=== PATIENT | female | born 1970 | race Caucasian/White ===

== ENCOUNTER 2017-02-18 09:09 | Emergency (ER) | payer BC ==
--- NOTE | 2017-02-18 09:11 | UC ---
Respiratory Complaint HPI - HPI Summary HPI Summary: 46 YEAR OLD FEMALE PRESENTS WITH COMPLAINS OF COUGH, CHEST CONGESTION AND TROUBLE BREATHING. - History of Current Complaint Stated Complaint: COUGH,CHEST CONGESTION,SINUS Time Seen by Provider: 02/18/17 09:10 - Allergies/Home Medications Allergies/Adverse Reactions: Allergies Allergy/AdvReac Type Severity Reaction Status Date / Time No Known Allergies Allergy Verified 02/18/17 09:16 Review of Systems Constitutional: Negative Skin: Negative Eyes: Negative ENT: Sore Throat, Nasal Discharge, Sinus Congestion, Sinus Pain/Tenderness Respiratory: Shortness Of Breath, Cough Cardiovascular: Negative Gastrointestinal: Negative Genitourinary: Negative Motor: Negative Neurovascular: Negative Musculoskeletal: Negative Neurological: Negative Psychological: Negative All Other Systems Reviewed And Are Negative: Yes Physical Exam Triage Information Reviewed: Yes Eye Exam: Normal ENT: Positive: Nasal congestion, Nasal drainage Dental Exam: Normal Neck exam: Normal Neck: Positive: 1 Respiratory: Positive: Wheezing, Expiration Cardiovascular Exam: Normal Abdominal Exam: Normal Musculoskeletal Exam: Normal Neurological Exam: Normal Psychological Exam: Normal Skin Exam: Normal Respiratory Course/Dx - Differential Dx/Diagnosis Provider Diagnoses: SINUSITIS. PHARYNGITIS. WHEEZING Discharge - Discharge Plan Condition: Stable Disposition: HOME Prescriptions: Albuterol HFA INHALER* [Ventolin HFA Inhaler*] 1 puff INH Q4H PRN #1 mdi PRN Reason: Wheezing Azithromycin TAB* [Zithromax TAB (Z-AGATA) 250 mg #6 tabs] 2 tab PO .TODAY, THEN 1 DAILY #1 agata Methylprednisolone [Medrol Dosepak 4 MG*] 4 mg PO .SEE AGATA INSTRUCTION #21 tab guaiFENesin/CODIEN 100MG-10MG* [Robitussin AC 100Mg-10Mg*] 5 ml PO Q4H PRN #120 udc MDD 20 ML PRN Reason: Cough Patient Education Materials: Sinusitis (ED), Acute Bronchitis (ED), Cold Symptoms (ED) Referrals: NUHA Pepper [Primary Care Provider] -
[2017-02-18 09:21] VITALS: BP 143/84
== END 2017-02-18 09:51 | disposition home or self-care (01) ==
LOC: UCCORT 09:09
DX: J32.9 Chronic sinusitis, unspecified (principal); J02.9 Acute pharyngitis, unspecified; R06.2 Wheezing
CPT/HCPCS: 99202; G0463

== ENCOUNTER 2018-05-13 08:59 | Emergency (ER) | payer BC, OTHER ==
[2018-05-13 09:18] VITALS: BP 151/86
--- NOTE | 2018-05-13 09:43 | UC ---
Lower Extremity/Ankle HPI - HPI Summary HPI Summary: Pt c/o left foot pain that began after jumping out of a ditch quickly due to "bee attack". Pt has previous hx of fracture to left foot. pain began in left mentral "ball of foot" and now thinks that plantar, distal foot is bruised. - History of Current Complaint Chief Complaint: UCLowerExtremity Stated Complaint: LEFT FOOT PAIN Time Seen by Provider: 05/13/18 09:02 Hx Obtained From: Patient Hx Last Menstrual Period: 05/08/18 ?: No Onset/Duration: Gradual Onset, Lasting Days, Still Present Severity Initially: Mild Severity Currently: Moderate Pain Intensity: 5 Aggravating Factor(s): Standing, Ambulation Alleviating Factor(s): Rest, Elevation Able to Bear Weight: Yes - Risk Factors Gout Risk Factors: Age Over 40 DVT Risk Factors: Smoking Septic Arthritis Risk Factor: Negative - Allergies/Home Medications Allergies/Adverse Reactions: Allergies Allergy/AdvReac Type Severity Reaction Status Date / Time No Known Allergies Allergy Verified 05/13/18 09:08 Home Medications: Home Medications Esential Oils 05/13/18 [History] PMH/Surg Hx/FS Hx/Imm Hx Previously Healthy: Yes - Surgical History Surgical History: Yes Surgery Procedure, Year, and Place: Bilateral Carpal Tunnel Release, 2007, [facility]; Left Third Finger Trigger, 2007, [facility]. LEFT FOOT FXS - 1999 - Family History Known Family History: Positive: Cardiac Disease - Social History Occupation: Employed Full-time Lives: With Family Alcohol Use: "six pack or more" most days Substance Use Type: None Smoking Status (MU): Heavy Every Day Tobacco Smoker Type: Cigarettes Amount Used/How Often: ~ 1 PPD Length of Time of Smoking/Using Tobacco: Since Age 16 Have You Smoked in the Last Year: Yes Household Exposure Type: Cigarettes Review of Systems Constitutional: Negative Skin: Bruising Eyes: Negative ENT: Negative Respiratory: Negative Cardiovascular: Negative Gastrointestinal: Negative Genitourinary: Negative Motor: Negative Neurovascular: Negative Musculoskeletal: Arthralgia, Myalgia Neurological: Negative Psychological: Negative Is Patient Immunocompromised?: No All Other Systems Reviewed And Are Negative: Yes Physical Exam Triage Information Reviewed: Yes Appearance: Well-Appearing Vital Signs: Initial Vital Signs Temp 98.7 F 05/13/18 09:09 Pulse 74 05/13/18 09:09 Resp 18 05/13/18 09:09 BP 151/86 05/13/18 09:09 Pulse Ox 99 05/13/18 09:09 Vital Signs Reviewed: Yes Eye Exam: Normal ENT Exam: Normal Dental Exam: Normal Neck exam: Normal Respiratory: Positive: Respiratory distress Musculoskeletal: Positive: Other: - c/o pain at mid plantar aspect of "ball of foot". Neurological Exam: Normal Psychological Exam: Normal Skin Exam: Normal Diagnostics - Radiology No standard instances Radiology Interpretation Completed By: Radiologist - REPORT AND IMPRESSION: #. Normal articular alignment. #. Negative for fracture, findings of stress reaction, or focal osseous lesions. #. Preserved joint spaces. #. Small plantar fascia origin bone spur. Lower Extremity Course/Dx - Differential Dx/Diagnosis Differential Diagnosis/HQI/PQRI: Bursitis, Fracture (Closed), Strain Provider Diagnoses: metatarsalgia left foot Discharge - Sign-Out/Discharge Documenting (check all that apply): Patient Departure All imaging exams completed and their final reports reviewed: Yes - Discharge Plan Condition: Stable Disposition: HOME Patient Education Materials: Metatarsalgia (DC) Referrals: Bear Gramajo MD [Medical Doctor] - If Needed Helen Avelar NP [Primary Care Provider] - If Needed - Billing Disposition and Condition Condition: STABLE Disposition: Home
--- NOTE | 2018-05-13 09:49 | RAD ---
Indication: Pain post unrestrained to the LEFT foot 1.5 weeks ago. Plantar surface pain. Comparison: No relevant prior exams available on the [facility] PACS for comparison. Technique: AP, lateral, and oblique views LEFT foot. REPORT AND IMPRESSION: #. Normal articular alignment. #. Negative for fracture, findings of stress reaction, or focal osseous lesions. #. Preserved joint spaces. #. Small plantar fascia origin bone spur.
== END 2018-05-13 10:01 | disposition home or self-care (01) ==
LOC: UCCORT 08:59
DX: M25.572 Pain in left ankle and joints of left foot (principal)
CPT/HCPCS: 99211; G0463

== ENCOUNTER 2018-08-11 03:37 | Observation (INO) | payer OTHER ==
--- NOTE | 2018-08-11 03:55 | ED ---
Neurological HPI - HPI Summary HPI Summary: This patient is a 47 year old F transferred from [place] accompanied by a woman with a chief complaint of stroke symptoms since last night. The patient had just had intercourse when she lost the ability to talk clearly, speaking in made-up words to her who called EMS. Patient reports memory loss, confusion, difficulty talking, shoulder myalgia, the inability to smell, sensations in her neck. Patient denies vision problems or difficulty ambulating. The patients difficulty speaking resolved after about 30 minutes, according to her . She does not remember her attempting to get her dressed before coming to the hospital. The patient had several glasses of wine tonight. The patient had a WI on June 15 and since then has been eating very well, quit smoking, and decreased EtOH use. She states that her shoulders felt achy when she had her WI, and she has been feeling similarly recently. PMHX WI, HTN, HDL. No PMHx diabetes. SHX former smoker, occasional EtOH use. RX Plavix. Vitals in the room: HR 74 bpm BP 122/69. - History of Current Complaint Chief Complaint: EDNeurologicalDeficit Stated Complaint: GENERAL Time Seen by Provider: 08/11/18 03:41 Hx Obtained From: Patient, EMS Hx Last Menstrual Period: 05/08/18 Onset/Duration: Sudden Onset, Started hours ago Character: Impaired Speech Associated Signs and Symptoms: Positive: Memory Loss, Confusion. Negative: Visual Changes - Allergy/Home Medications Allergies/Adverse Reactions: Allergies Allergy/AdvReac Type Severity Reaction Status Date / Time No Known Allergies Allergy Verified 05/13/18 09:08 PMH/Surg Hx/FS Hx/Imm Hx Endocrine/Hematology History: Denies: Hx Diabetes Cardiovascular History: Reports: Hx Hypertension, Hx Myocardial Infarction History: Denies: Hx Dialysis - Surgical History Surgery Procedure, Year, and Place: Bilateral Carpal Tunnel Release, 2007, [facility]; Left Third Finger Trigger, 2007, [facility]. LEFT FOOT FXS - 1999 - Family History Known Family History: Positive: Cardiac Disease, Other - TIA - Social History Alcohol Use: Occasionally Substance Use Type: Reports: None Hx Tobacco Use: No Smoking Status (MU): Former Smoker - just quit after WI Type: Cigarettes Amount Used/How Often: ~ 1 PPD Length of Time of Smoking/Using Tobacco: Since Age 16 Have You Smoked in the Last Year: Yes Review of Systems Negative: Blurred Vision ENT: Other - inability to smell Positive: Myalgia - shoulder. Negative: Decreased ROM Neurological: Other - memory loss, confusion Positive: Slurred Speech Psychological: Other All Other Systems Reviewed And Are Negative: Yes Physical Exam - Summary Physical Exam Summary: Appearance: Well-appearing, Well-nourished, lying in bed comfortably Skin: Warm, dry, no obvious rash Eyes: sclera anicteric, no conjunctival pallor ENT: mucous membranes moist, pharynx appears normal Neck: Supple, nontender Respiratory: Clear to auscultation, no signs of respiratory distress Cardiovascular: Normal S1, S2. No murmurs. Normal distal pulses in tibial and radial bilaterally. Abdomen: Soft, nontender, normal active bowel sounds present Musculoskeletal: Normal, Strength/ROM Intact, Motor function in all 4 extremities is normal and symmetric. There is no rigidity or tremor noted. Neurological: A&Ox3, awake and alert, mentation is normal, speech is fluent and appropriate, Level of consciousness nml. The patient is alert and oriented. Cranial nerves are grossly intact. Gaze is conjugate and without nystagmus. Peripheral vision is intact to confrontation. There are no gross sensory abnormalities to light touch. There is no truncal or fine motor ataxia. Gait is normal. Psychiatric: affect is normal, does not appear anxious or depressed Triage Information Reviewed: Yes Vital Signs Reviewed: Yes Diagnostics - Laboratory Result Diagrams: 08/11/18 04:25 Lab Statement: Any lab studies that have been ordered have been reviewed, and results considered in the medical decision making process. Course/Dx - Course Course Of Treatment: This patient is a 47 year old F transferred from [place] accompanied by a woman with a chief complaint of stroke symptoms since last night. The patient had just had intercourse when she lost the ability to talk clearly, speaking in made-up words to her who called EMS. Patient reports memory loss, confusion, difficulty talking, shoulder myalgia, the inability to smell, sensations in her neck. Patient denies vision problems or difficulty ambulating. We discussed patient care with Dr. Kim and they recommended admission. - Diagnoses Provider Diagnoses: Transient ischemic attack - Physician Notifications Discussed Care Of Patient With: Tamera Kim Time Discussed With Above Provider: 15:51 Instructed by Provider To: Admit As Inpatient Discharge - Sign-Out/Discharge Documenting (check all that apply): Patient Departure - admission - Discharge Plan Condition: Fair Disposition: ADMITTED TO [facility] - Billing Disposition and Condition Condition: FAIR Disposition: Admitted to [facility] - Attestation Statements Document Initiated by Brooks: Yes Documenting Newibdemetrius: Jakub Barreto Provider For Whom Brooks is Documenting (Include Credential): Noe Ceballos MD Scribdemetrius Attestation: Jakub Esquivel scribed for Noe Ceballos MD on 08/11/18 at 0654. Scribe Documentation Reviewed: Yes Provider Attestation: The documentation as recorded by the Jakub rodriguez accurately reflects the service I personally performed and the decisions made by , Noe Ceballos MD Status of Scrbaldo Document: Viewed
--- OUTSIDE RECORDS SUMMARY | 2018-08-11 03:57 | XMS REPORT | Continuity of Care Document ---
:1970 External Reference #:[id number] Author Name Chi, Allison Care Team Providers Name Role Phone Helen Avelar FNP Care Team Information Maxillofacial Prosthodontist Unavailable Helen Avelar FNP Primary Care Physician Unavailable Payers Type Date Identification Numbers Payment Provider Subscriber Policy Number: [id number] [facility] Jim Shankar PayID: [id number] [address] [place] [address] Advance Directives Description No Information Available Problems Description No Information Family History Date Family Member(s) Problem(s) Comments Father 63 Father Unknown Mother 63 Mother Stroke Mother Hypertension Mother Hypercholesterolemia Social History Type Date Description Comments Sex Unknown Tobacco Use Start: Unknown End: Used To Smoke Cigarettes But Unknown Quit. ETOH Use 4-7 Days Per Week Recreational Drug Use Denies Drug Use Allergies, Adverse Reactions, Alerts Description No Known Drug Allergies Medications Medication Date Status Form Strength Qnty SIG Indications Ordering Provider Plavix 0 Active Tablets 1 by mouth Unknown 000 every day Aspirin [address] 81mg everyday Unknown 000 Metoprolol 0 Active Tablets ER 1 by mouth Unknown Succinate ER 000 24HR every day Atorvastatin 0 Active Tablets 1 by mouth Unknown Calcium 000 every day Immunizations Description No Information Available Vital Signs Date Vital Result Comment 07/26/2018 1:58pm Weight 160.00 lb Height 65 inches 5'5" BMI (Body Mass Index) 26.6 kg/m2 BP Systolic 126 mmHg BP Diastolic 81 mmHg Heart Rate 64 /min O2 % BldC Oximetry 97 % Body Temperature 97.9 F Pain Level 0 07/19/2018 9:09am Weight 160.00 lb Height 65 inches 5'5" BMI (Body Mass Index) 26.6 kg/m2 BP Systolic 127 mmHg BP Diastolic 80 mmHg Heart Rate 58 /min O2 % BldC Oximetry 99 % Body Temperature 98.2 F Pain Level 0 Results Description No Information Available Procedures Date Code Description Status 07/19/2018 25290 Nasal Endoscopy, Diag. Completed Encounters Type Date Location Provider Dx Diagnosis Office Visit 07/19/2018 9:00a Main Office Juanito Julian M.D. R43.0 Anosmia J34.2 Deviated nasal septum Plan of Treatment No Information Available
--- OUTSIDE RECORDS SUMMARY | 2018-08-11 03:57 | XMS REPORT | Continuity of Care Document ---
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 Helen Avelar FNP Primary Care Physician Unavailable Payers Type Date Identification Numbers Payment Provider Subscriber Policy Number: [id number] [facility] Jim Shankar PayID: [id number] [address] [place] [address] Advance Directives Description No Information Available Problems [...] Strength Qnty SIG Indications Ordering Provider Plavix 000 Active Tablets 1 by mouth Unknown 000 every day Aspirin 00/[address] 81mg everyday Unknown 000 Metoprolol 0 Active Tablets ER 1 by mouth Unknown Succinate ER 000 24HR every day Atorvastatin 0 Active Tablets 1 by mouth Unknown Calcium 000 every day Immunizations Description No Information Available Vital Signs Date Vital Result Comment 07/19/2018 9:09am Weight 160.00 lb Height 65 inches 5'5" BMI (Body Mass Index) 26.6 kg/m2 BP Systolic 127 mmHg BP Diastolic 80 mmHg Heart Rate 58 /min O2 % BldC Oximetry 99 % Body Temperature 98.2 F Pain Level 0 Results Description No Information Available Procedures Description No Information Available Encounters Description No Information Available Plan of Treatment No Information Available
--- OUTSIDE RECORDS SUMMARY | 2018-08-11 03:57 | XMS REPORT | Continuity of Care Document ---
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 Helen Avelar FNP Primary Care Physician Unavailable Payers Type Date Identification Numbers Payment Provider Subscriber Policy Number: [id number] [facility] Jim Shankar PayID: [id number] [address] [place] [address] Advance Directives Description No Information Available Problems [...] Strength Qnty SIG Indications Ordering Provider Plavix 00// Active Tablets 1 by mouth Unknown 0000 every day Aspirin 00/ Active Tablets 81mg everyday Unknown [address] DR Metoprolol 0000/ Active Tablets 1 by mouth Unknown Succinate ER 0000 ER 24HR every day Atorvastatin 00/00/ Active Tablets 1 by mouth Unknown Calcium 0000 every day Dexamethasone 07/26/ Hx Tablets 1mg 10tabs one tab Eliel, 2018 - daily for Juanito, days. M.D. 2019 Immunizations Description No Information Available Vital Signs Date Vital Result Comment 08/10/2018 1:38pm Weight 166.00 lb Height 65 inches 5'5" BMI (Body Mass Index) 27.6 kg/m2 BP Systolic 118 mmHg BP Diastolic 79 mmHg Heart Rate 66 /min O2 % BldC Oximetry 98 % Body Temperature 98.9 F Pain Level 0 07/26/2018 1:58pm Weight 160.00 lb Height 65 [...] Information Available Procedures Date Code Description Status 07/26/2018 09339 Nasal Function Studies Completed 07/26/2018 04220 Cat Scan Maxillofacial W/O Contrast,computed tomography Completed 07/26/2018 74593 Cat Scan Maxillofacial W/O Contrast,computed tomography Completed 07/19/2018 66878 Nasal Endoscopy, Diag. Completed Encounters Type Date Location Provider Dx Diagnosis Office Visit 07/26/2018 2:00p Main Office Juanito Julian M.D. R43.0 Anosmia J34.2 Deviated nasal septum Office Visit 07/19/2018 9:00a Main Office Juanito Julian M.D. R43.0 Anosmia J34.2 Deviated nasal septum Plan of Treatment No Information Available
[2018-08-11] MEDS ORDERED: Aspirin 81 mg CHEW TAB* 81 MG TAB.CHEW PO ONE (04:17)
[2018-08-11] MEDS ORDERED: Al Hydrox/Mg Hydrox/Simet LIQ* 30 ML UDC PO PRN (04:18)
[2018-08-11] MEDS ORDERED: Ondansetron INJ* 2 MG/ML VIAL IV PRN (04:18)
[2018-08-11] MEDS ORDERED: LORazepam INJ* 2 MG/ML 1 ML VIAL IV PUSH SCH (05:00)
[2018-08-11] MEDS ORDERED: Iohexol 350* (CONTRAST) 500 ML MDV IV ONE (05:02)
[2018-08-11 05:18] LABS: Albumin 4.3 g/dL (3.2-5.2); Albumin/Globulin Ratio 1.8 (1-3); BUN/Creatinine Ratio 19.4 (8-20); Calcium 8.8 mg/dL (8.6-10.3); EGFR Non-African American 87.2 (>60); Globulin 2.4 g/dL (2-4); Potassium 4.4 mmol/L (3.5-5.0); Total Bilirubin 0.4 mg/dL (0.2-1.0); Total Protein 6.7 g/dL (6.4-8.9)
[2018-08-11] MEDS: Heparin VIAL(*) 5000 UNITS/ML VIAL (FIVE THOUSAND) SUBCUT SCH ×3 (05:59→22:01)
--- NOTE | 2018-08-11 07:11 | HP ---
CC: Helen Avelar NP * HISTORY AND PHYSICAL: DATE OF ADMISSION: 08/11/18. TIME OF EVALUATION: 0400. PRIMARY CARE PHYSICIAN: Helen Avelar NP. CHIEF COMPLAINT: Difficulty speaking. HISTORY OF PRESENT ILLNESS: This is a 47-year-old female with a past medical history of coronary artery disease, status post angioplasty back in June 2018, who presented to emergency room from [place] after having an episode of expressive aphasia. The patient states that she had about three glasses of wine which is not unusual for her. Shortly after having intercourse with her , she began having gargled speech, inability to articulate. This lasted for about 20 minutes. EMS was called. When the was trying to get her dressed and ready she was disoriented and confused. She does not remember this but she does remember her nonsensical speech pattern. When she arrived to [place], her symptoms had resolved. With her presentation and history, recommended the patient be transferred to [facility] for further evaluation for TIA workup. The patient has never had any symptoms like this before in the past. She denies any chest pain or shortness of breath. No nausea, vomiting, diarrhea. She does have a headache. She has had some vision changes over the past month. She has had some bilateral neck discomfort that she is worried about her blood vessels in her neck that wakes her during her sleep over the past few months. She is also recently having issues with inability to smell and was seeing ENT and was started on a steroid for this. She has been compliant with her medications since her angioplasty. The patient denies any focal weakness. No numbness or tingling. Otherwise, review of systems is negative. PAST MEDICAL HISTORY: 1. History of coronary artery disease, status post LA with angioplasty at [facility] in June 2018. 2. Hypertension 3. Hyperlipidemia. 4. Alcohol use. MEDICATIONS: 1. Metoprolol 12.5 mg p.o. daily. 2. Lipitor 20 mg daily. 3. Plavix 75 mg daily. 4. Aspirin 81 mg daily. ALLERGIES: No known drug allergies. FAMILY HISTORY: Mother is alive. She did have a stroke at age 60. Father is alive with diabetes. SOCIAL HISTORY: The patient lives with her . 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 She states she drinks daily, average 6 to 7 beers or 2 to 3 glasses of wine daily. No illicit drug use. Alcohol use as above. She quit smoking June 15. She was smoking at least a pack a day for the past 30 years. She has a grown child, 28, son who is healthy. Her healthcare proxy is her . Code status is full code. REVIEW OF SYSTEMS: A 14-point review of systems as mentioned in the HPI, otherwise negative. PHYSICAL EXAMINATION GENERAL: No acute distress, resting comfortably with her mother at the bedside. VITAL SIGNS: Temp is 98.6, pulse rate is 73, respiratory rate is 16, oxygen saturation is 97% on room air, and blood pressure 122/69. HEENT: Head: Normocephalic. Pupils are equal and reactive, conjunctivae injected. Oropharynx: Mucous membranes moist. NECK: Supple. No adenopathy.. CARDIAC: Regular rate and rhythm. Soft systolic murmur heard throughout. RESPIRATORY: Clear to auscultation. No wheeze, rhonchi or rales. ABDOMEN: Soft, nontender, and nondistended. EXTREMITIES: No clubbing, cyanosis, or edema. +1 DPs. NEUROLOGIC: Alert and oriented x3. No gross focal neurologic deficits. Negative pronator drift. Cranial nerves II through XII intact. DIAGNOSTIC STUDIES/LAB DATA: Laboratory data from [facility], white count 7.8, hemoglobin 13.5, hematocrit 39.3, platelets 308. Sodium 145, potassium 4.3, chloride 113, bicarb 25, BUN 16, creatinine 0.9. Troponin 0.019. Alcohol is 222. Urine tox screen was negative. Head CT was negative. EKG was normal sinus rhythm. ASSESSMENT: This is a 47-year-old female with a past medical history of coronary artery disease and hypertension presents to the emergency room with an episode of expressive aphasia. 1. Expressive aphasia. Assessment: The patient's presentation is concerning for transient ischemic attack. She is neurologically intact with no deficits. The patient also was drinking with an alcohol of 22. This could be related to alcohol use as well but with her history, it is not unreasonable to admit her for a stroke workup. Plan: We will admit her on , continue neurological checks, we will order CT of the head and neck MRI of the brain and echocardiogram as well. We will give her a full dose aspirin 324 mg while in the ER. Continue full dose aspirin and continue on her Plavix for now. Consult Neurology with any further recommendations. 2. Elevated troponin. The patient has no chest pain. Her EKG from [place] is unremarkable. We will repeat a troponin and repeat an EKG as well. She will be getting an echocardiogram, consider Cardiology evaluation as well. 3. Alcohol use. Assessment: The patient seems to be a heavy alcohol user. She will go on the [facility] protocol. 4. Chronic medical problems. Hypertension. The patient is on a low dose of metoprolol. We will hold this for now to allow for permissive hypertension in the setting of possible transient ischemic attack. 5. Hyperlipidemia. We will check a lipid panel now. Continue on atorvastatin 20. 6. FEN. Continue heart healthy diet. 7. DVT prophylaxis: The patient scores moderate risk, placed her on heparin subcutaneous t.i.d. 5. Code status: Full code. PATIENT TIME: Greater than 40 minutes was spent doing history and physical, more than half the time spent in direct patient contact and critical care time. [id number]/[facility] #: [id number] RAMIN
[2018-08-11] MEDS: Clopidogrel TAB* 75 MG PO SCH (07:45)
[2018-08-11] MEDS: Acetaminophen TAB* 325 MG PO PRN (07:46)
[2018-08-11] MEDS: Folic Acid TAB* 1 MG PO SCH (07:46)
[2018-08-11] MEDS: Thiamine TAB* 100 MG TAB PO SCH (07:46)
[2018-08-11] MEDS: Multivitamins/Minerals TAB PO SCH (07:46)
[2018-08-11 08:36] LABS: ABS Basophils 0.1 10^3/ul (0-0.2); ABS Eosinophils 0.1 10^3/ul (0-0.6); ABS Lymphocytes 2.5 10^3/ul (1.0-4.8); ABS Monocytes 0.9 10^3/ul (0-0.8); ABS Neutrophils 6.7 10^3/ul (1.5-7.7); ABS Nucleated RBC 0 10^3/ul; Eosinophil % 1.4 %; Hematocrit 36 % (35-47); Hemoglobin 12.3 g/dl (12.0-16.0); Lymphocyte % 24.1 %; Mean Corpuscular HGB Conc 34 g/dl (31-36); Mean Corpuscular Hemoglobin 32 pg (27-31); Mean Corpuscular Volume 93 fL (80-97); Mean Platelet Volume 6.6 fL (7.4-10.4); Nucleated Red Blood Cells % 0; Platelet Count 302 10^3/ul (150-450); Red Blood Count 3.88 10^6/ul (4.00-5.40); Red Cell Distribution Width 14 % (10.5-15); White Blood Count 10.3 10^3/ul (3.5-10.8)
[2018-08-11 08:54] LABS: BUN/Creatinine Ratio 19.5 (8-20); Calcium 8.4 mg/dL (8.6-10.3); EGFR Non-African American 75.1 (>60); HDL Cholesterol 56.1 mg/dL
[2018-08-11] MEDS ORDERED: Aspirin TAB* 325 MG PO SCH (09:00)
--- NOTE | 2018-08-11 12:16 | ECHO ---
Patient: FRANCHESCA CUENCA [facility] Rec#: [id number] : 1970 Date: 08/11/2018 Age: 47y Height: 171 cm / 67.3 in Weight: 75 kg / 165.3 lbs Sex: F BSA: 1.87 Room#: 433 Admit Date#: 08/11/2018 Type: Inpatient Referring: Tamera Kim Reading: Dipesh Talamantes MD Mechanical Spreader Operator: Pao Andujar RDCS CC: Helen Avelar NP Transthoracic Echocardiogram Indication: TIA BP: 116/62 HR: 78 Rhythm: NSR Findings History: NH,HTN,HLD,former smoker,ETOH use. Technical Comments: The study is technically limited due to poor parasternal windows. The study is technically limited due to the patient's smoking history. Completed at 1121. Left Ventricle: The left ventricular chamber size is normal. There is normal left ventricular systolic function. The estimated ejection fraction is 55-60%. There is no consistent Doppler evidence of clinically significant diastolic dysfunction. Left Atrium: The left atrial chamber size is normal. Right Ventricle: The right ventricular cavity size is normal. The right ventricular global systolic function is normal. Right Atrium: The right atrial cavity size is normal. There is no patent foramen ovale visualized. There is no evidence of patent foramen ovale shunting. A patent foramen ovale is not demonstrated with color Doppler and agitated contrast. Aortic Valve: The aortic valve structure is not well visualized. There is no evidence of aortic regurgitation. There is no evidence of aortic stenosis. Mitral Valve: The mitral valve leaflets are moderately thickened. There is no evidence of mitral regurgitation. There is no evidence of mitral stenosis. Tricuspid Valve: The tricuspid valve leaflets are normal. There is trace tricuspid regurgitation. There is no tricuspid stenosis. Pulmonic Valve: The pulmonic valve structure is not well visualized. Pericardium: A pericardial fat pad is visualized. Aorta: The ascending aorta is not well visualized. There is no dilatation of the aortic arch. There is no dilation of the aortic root. Pulmonary Artery: The main pulmonary artery is not well visualized. Venous: The venous system is not well visualized. Contrast: Normal saline was used as contrast for the bubble study. Intravenous contrast was used to help determine presence of intracardiac shunting. Summary: There was not any prior study for comparison. Conclusions The left ventricular chamber size is normal. There is normal left ventricular systolic function. The estimated ejection fraction is 55-60%. There is no evidence of patent foramen ovale shunting. A patent foramen ovale is not demonstrated with color Doppler and agitated contrast. No significant valvular disease Measurements Name Value Normal Range RVIDd (AP) 2D 2.6 cm (0.9 - 2.6) RVDdMajor (2D) 2.6 cm (2.2 - 4.4) RAd ISD 4CH 4.3 cm (3.4 - 4.9) RA (A4C)W 2.9 cm (2.9 - 4.6) IVSd (2D) 0.8 cm (0.6 - 1) LVPWd (2D) 0.9 cm (0.6 - 1) LVIDd (2D) 3.8 cm (3.6 - 5.4) LVIDs (2D) 2.5 cm - LV FS (2D) 34 % (25 - 45) Aortic Annulus 1.9 cm (1.4 - 2.6) Ao root diameter (2D) 2.9 cm (2.1 - 3.5) Aortic arch 2.7 cm (1.8 - 3.4) Descending Ao 0.8 cm - LA dimension (AP) 2D 3.1 cm (2.3 - 3.8) LAd ISD 4CH 4.8 cm (2.9 - 5.3) LA ISD 4CH W 3 cm (2.5 - 4.5) Name Value Normal Range LA ESV SP 4CH (A/L) 18 ml - LA ESV SP 2CH (A/L) 22 ml - LA ESV BP (A/L) index 20 ml/m2 - Name Value Normal Range MV E-wave Vmax 1 m/sec - MV deceleration time 239 msec - MV A-wave Vmax 0.8 m/sec - MV E:A ratio 1.2 ratio - LV septal e' Vmax 0.1 m/sec - LV lateral e' Vmax 0.14 m/sec - LV E:e' septal ratio 10 ratio - LV E:e' lateral ratio 7.14 ratio - Name Value Normal Range AV Vmax 1.4 m/sec - AV VTI 29.6 cm - AV peak gradient 8 mmHg - AV mean gradient 5 mmHg - LVOT Vmax 1.1 m/sec - LVOT VTI 23.9 cm - LVOT peak gradient 5 mmHg - LVOT mean gradient 2 mmHg - Name Value Normal Range PV Vmax 0.9 m/sec - PV peak gradient 3 mmHg -
[2018-08-11] MEDS ORDERED: NS 0.9% 1000 ML* 1,000 ML IV SCH (18:30)
--- NOTE | 2018-08-11 19:39 | PN ---
Subjective Date of Service: 08/11/18 Interval History: Resting on bed on assessment. Mother and partner at bedside. Patient reports she had 4 oversized glasses of wine last evening prior to having intercourse with her after which she had symptoms of aphasia. Patient does not recall these events well and most of the history is obtained from partner. Patient reports she starts to vaguely remember the trip from [place] to [facility] in the ambulance. No repeat in symptoms of aphasia. No difficulty finding words, dizziness, headache, chest pain, palpitations, nausea, vomiting. Objective Active Medications: Acetaminophen (Tylenol Tab*) 650 mg PO Q4H PRN PRN Reason: FEVER/PAIN Last Admin: 08/11/18 07:46 Dose: 650 mg Al Hydrox/Mg Hydrox/Simethicone (Maalox Plus*) 30 ml PO Q6H PRN PRN Reason: INDIGESTION Last Admin: 08/11/18 07:45 Dose: 30 ml Aspirin (Aspirin Tab*) 325 mg PO DAILY [facility] Last Admin: 08/11/18 07:45 Dose: 325 mg Atorvastatin Calcium (Lipitor*) 20 mg PO 2100 [facility] Clopidogrel Bisulfate (Plavix Tab*) 75 mg PO DAILY [facility] Last Admin: 08/11/18 07:45 Dose: 75 mg Folic Acid (Folvite Tab*) 1 mg PO DAILY [facility] Last Admin: 08/11/18 07:46 Dose: 1 mg Heparin Sodium (Porcine) (Heparin Vial(*)) 5,000 units SUBCUT Q8HR [facility] Last Admin: 08/11/18 14:25 Dose: 5,000 units Sodium Chloride (Ns 0.9% 1000 Ml*) 1,000 mls @ 100 mls/hr IV PER RATE [facility] Stop: 08/12/18 04:29 Lorazepam (Ativan Inj*) 0 - 3 [address] IV PUSH .PER [facility] PROTOCOL [facility]; Protocol Multivitamins/Minerals (Theragran/Minerals Tab*) 1 tab PO DAILY [facility] Last Admin: 08/11/18 07:46 Dose: 1 tab Ondansetron HCl (Zofran Inj*) 4 mg IV Q4H PRN PRN Reason: NAUSEA/VOMITING Last Admin: 08/11/18 07:41 Dose: 4 mg Thiamine HCl (Vitamin B-1 Tab*) 100 mg PO DAILY [facility] Last Admin: 08/11/18 07:46 Dose: 100 mg Vital Signs - 8 hr 08/11/18 08/11/18 14:03 16:30 Temperature 99.4 F 98.3 F Pulse Rate 68 66 Respiratory 16 14 Rate Blood Pressure 122/73 110/70 (mmHg) O2 Sat by Pulse 97 99 Oximetry Oxygen Devices in Use Now: None Appearance: Well appearing Eyes: PERRLA Ears/Nose/Mouth/Throat: Clear Oropharnyx, Mucous Membranes Moist Neck: NL Appearance and Movements; NL JVP Respiratory: Symmetrical Chest Expansion and Respiratory Effort, Clear to Auscultation Abdominal: NL Sounds; No Tenderness; No Distention Lymphatic: No Cervical Adenopathy Extremities: No Edema Skin: No Rash or Ulcers Neurological: Alert and Oriented x 3, NL Sensation, NL Muscle Strength and Tone Nutrition: Taking PO's Result Diagrams: 08/11/18 08:24 08/11/18 08:24 Additional Lab and Data: Laboratory Results - last 24 hr 08/11/18 08/11/18 08/11/18 04:25 04:25 08:24 WBC 10.3 RBC 3.88 L Hgb 12.3 Hct 36 MCV 93 MCH 32 H MCHC 34 RDW 14 Plt Count 302 MPV 6.6 L Neut % (Auto) 64.7 Lymph % (Auto) 24.1 [place] % (Auto) 8.6 Eos % (Auto) 1.4 Baso % (Auto) 1.2 Absolute Neuts (auto) 6.7 Absolute Lymphs (auto) 2.5 Absolute Monos (auto) 0.9 H Absolute Eos (auto) 0.1 Absolute Basos (auto) 0.1 Absolute Nucleated RBC 0 Nucleated RBC % 0 Sodium 141 Potassium 4.4 Chloride 108 Carbon Dioxide 27 Anion Gap 6 BUN 14 Creatinine 0.72 Est GFR ( Amer) 105.5 Est GFR (Non-Af Amer) 87.2 BUN/Creatinine Ratio 19.4 Glucose 94 Calcium 8.8 Magnesium Total Bilirubin 0.40 AST 20 ALT 21 Alkaline Phosphatase 42 Troponin I 0.01 Total Protein 6.7 Albumin 4.3 Globulin 2.4 Albumin/Globulin Ratio 1.8 Triglycerides Cholesterol LDL Cholesterol HDL Cholesterol Serum Alcohol 08/11/18 08/11/18 08:24 14:25 WBC RBC Hgb Hct MCV MCH MCHC RDW Plt Count MPV Neut % (Auto) Lymph % (Auto) [place] % (Auto) Eos % (Auto) Baso % (Auto) Absolute Neuts (auto) Absolute Lymphs (auto) Absolute Monos (auto) Absolute Eos (auto) Absolute Basos (auto) Absolute Nucleated RBC Nucleated RBC % Sodium 139 Potassium 4.0 Chloride 107 Carbon Dioxide 24 Anion Gap 8 BUN 16 Creatinine 0.82 Est GFR ( Amer) 90.8 Est GFR (Non-Af Amer) 75.1 BUN/Creatinine Ratio 19.5 Glucose 89 Calcium 8.4 L Magnesium 2.0 Total Bilirubin AST ALT Alkaline Phosphatase Troponin I 0.01 0.01 Total Protein Albumin Globulin Albumin/Globulin Ratio Triglycerides 288 Cholesterol 162 LDL Cholesterol 48 HDL Cholesterol 56.1 Serum Alcohol 18 H Assess/Plan/Problems-Billing Assessment: 47 yr old female with pmh of cad with angioplasty 06/2018, htn, hld, etoh use, and tobacco use; who present to the ED from [facility] for further work up of possible TIA - Patient Problems (1) Aphasia Comment: - Resolved - No acute findings on imaging (CTA/MRI) - Dr Vides consulted and I very much appreciate his input. - Due to addition symptoms of anmesia, Dr Vides believes the patient suffered from a episode of Transcient Global Amnesia. - He also recommends EEG which he will coordination to be completed in the outpatient setting (2) Elevated troponin Comment: - Remained 0.01 - No EKG changes - Sinus on tele - Asymptomatic (3) HTN (hypertension) Comment: - Metoprolol was initially held due to concern for TIA, I have restarted it for tomorrow (4) HLD (hyperlipidemia) Comment: - Continue statin (5) ETOH abuse Comment: - Reports increase in etoh intake the night of episode, but reports she does not drink like that every night. Reports a few times a week she will have 3 to 4 beers - Cont WAM (6) Tobacco abuse Comment: - Quit Jun 2018 (7) Tachycardia Comment: - Did have a few episodes of HR > 90 on tele - Due to drinking and above mentioned episdoes, IVF initiated (8) DVT prophylaxis Comment: - SubQ Heparin Status and Disposition: D/C when medically stable Attending: Alfonso Balderas
[2018-08-11] MEDS ORDERED: Atorvastatin* 20 MG TAB PO SCH (21:00)
[2018-08-11] MEDS ORDERED: LORazepam TAB(*) 1 MG PO PRN (21:48)
--- NOTE | 2018-08-11 21:57 | CONS ---
NEUROLOGY CONSULTATION: DATE OF CONSULT: 08/11/18 REFERRING PROVIDER: Dr. Kim. LOCATION: She is an inpatient in room 433. CHIEF COMPLAINT: Episode of language difficulties and amnesia. HISTORY OF PRESENT ILLNESS: Jim Shankar is a 47-year-old woman who was at home yesterday with her cuca sheridan, who was very upset about a work-related issue and then became angry about it. She settled do wn later in the evening. She drank a fair amount of wine. She and her made love that marcella munguia He went to do something and when he came back, he heard she was making funny noises. She was sti ll in bed and she was talking gibberish in an agitated fashion. He became very worried and she looke d very scared and anxious. This went on for about 10 minutes at least and he called 911. She had to go to the bathroom and she was able to say a word at that point which made sense. She then became a gitated again and was speaking nonsensical speech. Ambulance members arrived and she recognized one of the members, who was an old friend, and she said his name. She then started speaking gibberish ag ain for another 10 minutes or so. After that, she was able to speak clearly. The whole episode of d ifficulty with agitated language lasted about 40 minutes altogether, interspersed by the 2 brief epis odes of clarity. After that, she was still agitated and angry. She would repeat the same things ove r and over and indicated that she did not want to go to the hospital. In the [facility] , she was also agitated and somewhat belligerent. She would repeat the same questions over and over, such as "why am I here", "why can't I go home", and "what's happening." This went on for at least a n hour or two. She was transferred to our hospital in the netting inspector hours. She does not remembe r much of being in the [facility] and remembers just a few snippets of the time that the ambul ance was in her home. She remembers being in the emergency room here, but it is a little bit vague. By later in the morning, she felt a little more clear. This evening, she feels like her memory and cognition are back to normal. She had a fair amount of drink and her alcohol level at [place] was, I believe, 24 and her alcohol level here at 8 in the morning was still 18. There is no prior history of episodes of amnesia, seizures, transient ischemic attacks or strokes. S he does have a history of migrainous visual auras, which go back over a decade. She saw a neurologis t who did an MRI and was told there was some nonspecific white matter changes. She gets occasional h eadaches, but not frequent, and usually not severe. She did complain of a dull headache during this episode according to her mother and who are with her this evening. She does not have a heada jeancarlos now. She has had a couple of concussions, which were sports related. There is no history of seizures. PAST MEDICAL HISTORY: Notable for recent diagnosis of coronary artery disease this past June. I believe she had chest pain and was evaluated and had a cardiac catheterization and some stenting. S he was told she can resume normal activities. She was placed on aspirin, Plavix, and a statin. Since that time, she has quit smoking. She has changed her diet around entirely. She is trying to take er medicines on a regular basis. MEDICATIONS ON ADMISSION: 1. Metoprolol 12.5 mg p.o. daily. 2. Lipitor 20 mg daily. 3. Plavix 75 mg daily. 4. Aspirin 81 mg p.o. daily. ALLERGIES: She does not have any drug allergies. REVIEW OF SYSTEMS: Negative for diabetes, seizures, frequent headaches. She has lost some weight in tentionally in the last couple of months. She tries to walk for exercise. She drinks several glasse s of wine or beer a day. 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 SOCIAL HISTORY: She lives with her . She has a 28-year-old son. She quit smoking a couple o f months ago. She still drinks alcohol, as noted above. FAMILY HISTORY: Notable for a stroke in her mother. PHYSICAL EXAMINATION: She is well nourished and well hydrated. She has been afebrile throughout her hospital stay. Blood pressure is running in the teens to low 20s systolic, 60 to 70 diastolic. Hea rt rate is in the 60s and regular. Respiratory rate is 18 and oxygen saturation is 99% on room air. Heart is in a regular rate and rhythm, without murmurs. Lungs are clear. There are no cervical brui ts. Oral mucosa is moist and atraumatic. On neurologic exam, pupils, fundi, and eye movements are normal. Visual david are full to confronta tion. There is no ptosis. Facial musculature and facial sensation are intact and symmetric. Palate and tongue are normal and speech is clear, without dysarthria. Hearing is intact. Motor exam reveals normal tone and strength proximally and distally in upper and lower extremities. There is no sustention or action tremor. [id number] maneuver and finger taps are normal bilatera lly. Reflexes are symmetrical in the upper and lower extremities. Plantar responses are flexor. Sensory exam to light touch and pin is intact and symmetric in all limbs. She is alert and oriented and a good historian, other than for about 4 to 5 hours around the time of this episode. Remote memory is intact. Attention, concentration, and fund of knowledge are adequate . Language is fluent. DIAGNOSTIC STUDIES/LABORATORY DATA: Includes the serum alcohol level of 18 at 8:30 this morning, nor mal chemistry profile. Troponins are 0.1 x3. Normal liver enzymes. Cholesterol 162 and LDL 48 this morning. CBC is normal other than a borderline hemoglobin at 3.88. Other laboratory data includes an MRI of the brain done today. It is interpreted as showing nonspeci fic white matter changes. I reviewed it and I agreed. There are perhaps 4 to 5 small subcortical wh ite matter lesions, which look like either chronic ischemic changes or associated with migraine. CT angiogram of the head and neck is interpreted as normal. Transthoracic echocardiogram is unremarkabl e. IMPRESSION AND PLAN: Impression is that of a probable episode of transient global amnesia in the set ting of alcohol intoxication, emotional distress, and sexual activity. The speaking of gibberish is the most unusual part, but may have been related to her intoxication with alcohol. She is already on aspirin and Plavix and a statin. Her blood pressure is adequately controlled and s he is not diabetic. I think she should have an EEG, but it is not available now at 6 in the evening, other than on an urgent basis, and I think it could be done as an outpatient. I have explained the diagnosis and written it out for Jim and her and mother. I told him th at the etiology is unclear, but various theories include vasospasm. I told them that it is unlikely to recur, with a recurrence rate of about 5% or less. I told him if it does recur, she should be ree valuated. I recommended the EEG and told them we will try to get it tonight, but if not, we will do it as an outpatient. We talked about brain healthy diets and activities and the similarity to heart healthy activities. We went over the differential diagnosis of transient global amnesia, including t ransient ischemic attacks and seizures. I will have my office contact her for followup on the EEG, d epending upon whether it needs to be done as an outpatient or not. [id number]/[facility] #: [id number]
[2018-08-12] MEDS: Acetaminophen TAB* 325 MG PO PRN (05:34)
[2018-08-12] MEDS: Heparin VIAL(*) 5000 UNITS/ML VIAL (FIVE THOUSAND) SUBCUT SCH (05:36)
[2018-08-12] MEDS: Folic Acid TAB* 1 MG PO SCH (08:53)
[2018-08-12] MEDS: Multivitamins/Minerals TAB PO SCH (08:53)
[2018-08-12] MEDS: Clopidogrel TAB* 75 MG PO SCH (08:53)
[2018-08-12] MEDS: Thiamine TAB* 100 MG TAB PO SCH (08:54)
[2018-08-12] MEDS ORDERED: Aspirin EC TAB* 81 MG TAB.EC PO SCH (09:00)
[2018-08-12] MEDS ORDERED: Metoprolol Tartrate TAB* 25 MG PO SCH (09:00)
--- NOTE | 2018-08-12 10:55 | PN ---
Subjective Date of Service: 08/12/18 Interval History: Pt symptoms have resolved. She feels a little nauseous this morning, denies vomiting. No fever/chills. Denies any further symptoms of amnesia and difficulty with speech. She reports she feels steady on her feet. Objective Active Medications: Acetaminophen (Tylenol Tab*) 650 mg PO Q4H PRN PRN Reason: FEVER/PAIN Last Admin: 08/12/18 05:34 Dose: 650 mg Al Hydrox/Mg Hydrox/Simethicone (Maalox Plus*) 30 ml PO Q6H PRN PRN Reason: INDIGESTION Last Admin: 08/11/18 07:45 Dose: 30 ml Aspirin (Aspirin Ec Tab*) 81 mg PO DAILY [facility] Last Admin: 08/12/18 08:53 Dose: 81 mg Atorvastatin Calcium (Lipitor*) 20 mg PO 2100 [facility] Last Admin: 08/11/18 22:01 Dose: 20 mg Clopidogrel Bisulfate (Plavix Tab*) 75 mg PO DAILY [facility] Last Admin: 08/12/18 08:53 Dose: 75 mg Folic Acid (Folvite Tab*) 1 mg PO DAILY [facility] Last Admin: 08/12/18 08:53 Dose: 1 mg Heparin Sodium (Porcine) (Heparin Vial(*)) 5,000 units SUBCUT Q8HR [facility] Last Admin: 08/12/18 05:36 Dose: 5,000 units Lorazepam (Ativan Inj*) 0 - 3 mg IV PUSH .PER [facility] PROTOCOL [facility]; Protocol Lorazepam (Ativan Tab(*)) 1 mg PO Q6H PRN PRN Reason: ANXIETY Metoprolol Tartrate (Lopressor Tab*) 12.5 mg PO DAILY [facility] Last Admin: 08/12/18 08:54 Dose: 12.5 mg Multivitamins/Minerals (Theragran/Minerals Tab*) 1 tab PO DAILY [facility] Last Admin: 08/12/18 08:53 Dose: 1 tab Ondansetron HCl (Zofran Inj*) 4 mg IV Q4H PRN PRN Reason: NAUSEA/VOMITING Last Admin: 08/11/18 07:41 Dose: 4 mg Thiamine HCl (Vitamin B-1 Tab*) 100 mg PO DAILY [facility] Last Admin: 08/12/18 08:54 Dose: 100 mg Vital Signs - 8 hr 08/12/18 08/12/18 08/12/18 04:00 04:02 05:58 Temperature 98.4 F 98.4 F Pulse Rate 60 51 Respiratory 18 16 16 Rate Blood Pressure 103/62 104/58 (mmHg) O2 Sat by Pulse 98 98 Oximetry 08/12/18 08/12/18 06:00 07:23 Temperature 98.3 F Pulse Rate 60 Respiratory 16 20 Rate Blood Pressure 111/68 (mmHg) O2 Sat by Pulse 99 Oximetry Oxygen Devices in Use Now: None Appearance: 47 yo female A+Ox3 in NAD Eyes: No Scleral Icterus, PERRLA Ears/Nose/Mouth/Throat: NL Teeth, Lips, Gums, Mucous Membranes Moist Neck: NL Appearance and Movements; NL JVP Respiratory: Symmetrical Chest Expansion and Respiratory Effort, Clear to Auscultation Cardiovascular: NL Sounds; No Murmurs; No JVD, RRR, No Edema Abdominal: NL Sounds; No Tenderness; No Distention Lymphatic: No Cervical Adenopathy Extremities: No Edema, No Clubbing, Cyanosis Skin: No Rash or Ulcers, No Nodules or Sclerosis Neurological: Alert and Oriented x 3, NL Sensation, NL Gait, NL Muscle Strength and Tone Lines/Tubes/Other Access: Clean, Dry and Intact Peripheral IV Nutrition: Taking PO's Result Diagrams: 08/11/18 08:24 08/11/18 08:24 Additional Lab and Data: Laboratory Results - last 24 hr 08/11/18 08/11/18 08/11/18 04:25 04:25 08:24 WBC 10.3 RBC 3.88 L Hgb 12.3 Hct 36 MCV 93 MCH 32 H MCHC 34 RDW 14 Plt Count 302 MPV 6.6 L Neut % (Auto) 64.7 Lymph % (Auto) 24.1 [place] % (Auto) 8.6 Eos % (Auto) 1.4 Baso % (Auto) 1.2 Absolute Neuts (auto) 6.7 Absolute Lymphs (auto) 2.5 Absolute Monos (auto) 0.9 H Absolute Eos (auto) 0.1 Absolute Basos (auto) 0.1 Absolute Nucleated RBC 0 Nucleated RBC % 0 Sodium 141 Potassium 4.4 Chloride 108 Carbon Dioxide 27 Anion Gap 6 BUN 14 Creatinine 0.72 Est GFR ( Amer) 105.5 Est GFR (Non-Af Amer) 87.2 BUN/Creatinine Ratio 19.4 Glucose 94 Calcium 8.8 Magnesium Total Bilirubin 0.40 AST 20 ALT 21 Alkaline Phosphatase 42 Troponin I 0.01 Total Protein 6.7 Albumin 4.3 Globulin 2.4 Albumin/Globulin Ratio 1.8 Triglycerides Cholesterol LDL Cholesterol HDL Cholesterol Serum Alcohol 08/11/18 08/11/18 08:24 14:25 WBC RBC Hgb Hct MCV MCH MCHC RDW Plt Count MPV Neut % (Auto) Lymph % (Auto) [place] % (Auto) Eos % (Auto) Baso % (Auto) Absolute Neuts (auto) Absolute Lymphs (auto) Absolute Monos (auto) Absolute Eos (auto) Absolute Basos (auto) Absolute Nucleated RBC Nucleated RBC % Sodium 139 Potassium 4.0 Chloride 107 Carbon Dioxide 24 Anion Gap 8 BUN 16 Creatinine 0.82 Est GFR ( Amer) 90.8 Est GFR (Non-Af Amer) 75.1 BUN/Creatinine Ratio 19.5 Glucose 89 Calcium 8.4 L Magnesium 2.0 Total Bilirubin AST ALT Alkaline Phosphatase Troponin I 0.01 0.01 Total Protein Albumin Globulin Albumin/Globulin Ratio Triglycerides 288 Cholesterol 162 LDL Cholesterol 48 HDL Cholesterol 56.1 Serum Alcohol 18 H Assess/Plan/Problems-Billing Assessment: 47 yr old female with pmh of cad with angioplasty 06/2018, htn, hld, etoh use, and tobacco use; who present to the ED from [facility] for further work aphasia and amnesia - Patient Problems (1) Aphasia Comment: - Resolved - No acute findings on imaging (CTA/MRI) - Dr Vides consulted . - Due to addition symptoms of anmesia, Dr Vides believes the patient suffered from a episode of Transcient Global Amnesia. - He also recommends EEG outpt (2) ETOH abuse Comment: - Reports increase in etoh intake the night of episode, but reports she does not drink like that every night. Reports a few times a week she will have 3 to 4 beers - recommended decrease or abstain from ETOH (3) HLD (hyperlipidemia) Comment: - Continue statin (4) HTN (hypertension) Comment: - Metoprolol (5) Tachycardia Comment: - Resolved with restarting BB and IVFs (6) Tobacco abuse Comment: - Quit Jun 2018 (7) DVT prophylaxis Comment: - SubQ Heparin Status and Disposition: OBV. DC home today; stable
[2018-08-12 13:50] VITALS: BP 120/81
--- NOTE | 2018-08-12 18:09 | DS ---
DISCHARGE SUMMARY: DATE OF ADMISSION: 08/11/18 DATE OF DISCHARGE: 08/12/18 PROVIDER: Harrison Mandujano NP. ATTENDING PHYSICIAN: Dr. Balderas * (report dictated by Harrison Mandujano NP). PRIMARY CARE PROVIDER: Helen Avelar NP. CONSULTING NEUROLOGIST: Dr. Vides. DISCHARGE DIAGNOSES: Amnesia and aphasia thought to be secondary to global transient amnesia and possible ethanol use. SECONDARY DIAGNOSES: 1. History of coronary artery disease status post myocardial infarction with angioplasty. 2. Hypertension. 3. Hyperlipidemia. DISCHARGE MEDICATIONS: 1. Metoprolol 12.5 mg p.o. daily. 2. Lipitor 20 mg p.o. daily. 3. Plavix 75 mg p.o. daily. 4. Aspirin 81 mg p.o. daily. HISTORY OF PRESENT ILLNESS AND HOSPITAL COURSE: Please see history and physical by Dr. Kim for full admission details, but in summary, this is a 47- year-old female with a past medical history as stated above, who presented initially to [facility] with report of expressive aphasia and amnesia. The patient reported that she had 3 to 4 glasses of wine and went to bed and per her , he heard her talking in the other room, went to see who she was talking to and noted that she was not making any sense with her speech. Per the patient, she reported garbled speech and inability to articulate. She reported this lasted approximately 20 to 30 minutes. Per the , she also appeared to be disoriented and confused. EMS was called and the patient was sent to [facility], then transferred to [facility] for evaluation of TIA workup. Per the patient, she did not remember any of what happened but does remember her nonsensical speech pattern. She was admitted to the hospitalist service to the telemetry unit. In the emergency department, she did report a headache and does have a history of migraines as well. She did report to the attending physician that she had some vision changes over the past month and bilateral neck discomfort and recently started seeing an ENT due to inability to smell and was started on a steroid for this. She denied any focal weakness, numbness, tingling, and in the emergency department, her symptoms had resolved and she was found to be neurologically intact with no deficits. Her serum alcohol level was noted to be 22 at [facility]. She reported that just prior to the episode that she was having sexual intercourse. She underwent a CT of the brain , CTA of the head and neck, and MRI of the brain, which were negative for acute intracranial pathology. Her MRI of the brain does show multifocal of elevated T2/FLAIR signal within the periventricular and subcortical white matter, which are nonspecific findings, but can be seen associated with migraine headache as well the sequel of previous infection or inflammation and chronic small vessel ischemia. A demyelinating disease is on the differential but is considered less likely in the absence of appropriate clinical presentation. No restricted diffusion to suggest acute infract. The patient has been monitored on telemetry with no further symptoms. She was seen in consultation by neurologist, Dr. Vides, who suspects her episode of amnesia was secondary to transient global amnesia and though the aphasia is considered not to be typical for global amnesia, but it is thought most likely this is still her diagnosis and that due to her alcohol intake, that her possible garbled speech along with her amnesia explains aphasia. This has completely resolved. She is to continue on her aspirin, Plavix, and statin. She underwent a fasting lipid profile which shows her triglycerides to be 288, cholesterol is 162, LDL of 48, and HDL of 56. In regards to her triglycerides, I did discuss with the patient of reducing her unhealthy carbohydrate intake and sugar intake and this could possibly improve her triglycerides. She should have a followup lipid profile in 3 months. She reports that since her myocardial infarction this fall, she and her have greatly changed their diets as well as she has quit smoking. She does report, however, she continues to eat a carb-heavy and high-sugar diet. She was recommended to follow up for nutritional counseling. Cardiac enzymes, troponin were trended, which were flat, 0.01. She had no EKG changes noted. Other labs are unremarkable. The patient has no obvious signs of infectious process. She does report of some mild nausea this morning but states that she is also very anxious. She is ambulating around the unit with a steady gait. The plan will be for discharge home and follow up with an outpatient EEG per Neurology. DISCHARGE PLAN: 1. Stable for discharge to home. 2. Follow up with Dr. Vides within 4 to 6 weeks. 3. Outpatient EEG will be scheduled through Dr. Vides's office. The patient was instructed if she does not hear anything within a couple days, to call his office for confirmation. 4. Return to the emergency department with any worsening or concerning symptoms. TIME SPENT: Approximately 60 minutes were spent on this discharge. HARRISON MANDUJANO, [employer] [id number]/CPS #: [id number] RAMIN
== END 2018-08-12 14:38 | disposition home or self-care (01) ==
LOC: ED 03:37 → MEDTELE 04:18
PROVIDERS: ADMIT Pediatrics; ATTEND Internal Medicine
DX: R47.01 Aphasia (principal); R41.0 Disorientation, unspecified; Z87.891 Personal history of nicotine dependence; R47.81 Slurred speech; F10.10 Alcohol abuse, uncomplicated; E78.5 Hyperlipidemia, unspecified; I10 Essential (primary) hypertension; R00.0 Tachycardia, unspecified; I25.10 Atherosclerotic heart disease of native coronary artery without angina pectoris; I25.2 Old myocardial infarction; Z79.82 Long term (current) use of aspirin
CPT/HCPCS: 36415; 70030; 70496; 70498; 70551; 80048; 80053; 80061; 80320; 83735; 84484; 85025; 93005; 93306; 96372; 96374; 96375; 99284; A9270-GY; G0378; G0480; J1644; J2405; Q9967

== ENCOUNTER 2024-08-06 13:27 | Observation (INO) ==
[2024-08-06] MEDS: Lactated Ringers 1000 ml BAG 1,000 ML IV ONE ×2 (14:21→16:13)
[2024-08-06] MEDS: Albuterol/Ipratropium NEB.SOL (2.5/0.5 MG) 3 ML NEB.SOLN INH ONE (14:24)
[2024-08-06 14:27] LABS: ABS Basophils 0.1 10^3/uL (0.0-0.1); ABS Eosinophils 0.1 10^3/uL (0.0-0.5); ABS Lymphocytes 1.8 10^3/uL (1.0-4.8); ABS Monocytes 1.4 10^3/uL (0.0-0.9); ABS Neutrophils 10.6 10^3/uL (1.5-7.6); Eosinophil % 0.4 %; Hematocrit 43.5 % (35-45); Hemoglobin 15.3 g/dL (11.5-14.3); Lymphocyte % 12.7 %; Mean Corpuscular Hemoglobin 33.3 pg (27-33); Mean Corpuscular Hgb Conc 35.1 g/dL (31-36); Mean Corpuscular Volume 94.9 fL (80-97); Mean Platelet Volume 7.1 fL (7.5-11.2); Platelet Count 257 10^3/uL (150-450); Red Blood Count 4.59 10^6/uL (3.63-4.92); Red Cell Distribution Width 13.1 % (12-17); White Blood Count 13.9 10^3/uL (3.8-11.8)
[2024-08-06 15:00] LABS: Albumin 4.7 g/dL (3.5-5.7); Albumin/Globulin Ratio 1.6 (1-3); C Reactive Protein 129.55 mg/L (<8.01); Calcium 9.4 mg/dL (8.6-10.3); Creatinine, Serum 0.83 mg/dL (0.51-0.95); Total Bilirubin 1.1 mg/dL (0.2-1.0); Total Protein 7.7 g/dL (6.4-8.9); eGFR CKD-EPI 84.8 (>60)
[2024-08-06 15:54] LABS: High Sensitivity Troponin 1 Hr 6 pg/mL (<15)
[2024-08-06] MEDS: cefTRIAXone 1 gm/50 mL D5W 1 GM/50 ML BAG IV ONE (16:15)
[2024-08-06] MEDS: Azithromycin 500 mg/250 ml NS 500 MG/250 ML BAG IVPB ONE (16:18)
[2024-08-06] MEDS ORDERED: Al Hydrox/Mg Hydrox/Simet LIQ 30 ML UDC PO PRN (16:45)
[2024-08-06] MEDS ORDERED: Albuterol/Ipratropium NEB.SOL (2.5/0.5 MG) 3 ML NEB.SOLN INH PRN (16:50)
[2024-08-06] MEDS: cefTRIAXone 1 gm/50 mL D5W 1 GM/50 ML BAG IV SCH (17:48)
[2024-08-06] MEDS: CMCS:Ranolazine 500 mg TAB ER (NF) PO SCH (18:18)
[2024-08-06] MEDS: Enoxaparin 40 MG/0.4 ML SYR SUBCUT SCH (18:19)
[2024-08-06] MEDS: Albuterol/Ipratropium NEB.SOL (2.5/0.5 MG) 3 ML NEB.SOLN INH SCH (20:30)
[2024-08-07] MEDS ORDERED: guaiFENesin 100 mg/5 ml LIQ unit dose cup PO PRN (01:13)
[2024-08-07 05:09] LABS: ABS Basophils 0.1 10^3/uL (0.0-0.1); ABS Lymphocytes 0.9 10^3/uL (1.0-4.8); ABS Monocytes 0.5 10^3/uL (0.0-0.9); ABS Neutrophils 9.3 10^3/uL (1.5-7.6); ABS Nucleated RBC 0.01 10^3/ul; Hematocrit 37.9 % (35-45); Hemoglobin 13.1 g/dL (11.5-14.3); Lymphocyte % 8.1 %; Mean Corpuscular Hemoglobin 32.7 pg (27-33); Mean Corpuscular Hgb Conc 34.4 g/dL (31-36); Mean Corpuscular Volume 95.1 fL (80-97); Mean Platelet Volume 7.1 fL (7.5-11.2); Nucleated Red Blood Cells % 0.1 %/100WBC (0.0-0.8); Platelet Count 239 10^3/uL (150-450); Red Blood Count 3.99 10^6/uL (3.63-4.92); Red Cell Distribution Width 12.7 % (12-17); White Blood Count 10.7 10^3/uL (3.8-11.8)
[2024-08-07 06:02] LABS: Calcium 8.7 mg/dL (8.6-10.3); Creatinine, Serum 0.68 mg/dL (0.51-0.95); Potassium 4.4 mmol/L (3.5-5.0); eGFR CKD-EPI 104.7 (>60)
[2024-08-07] MEDS ORDERED: Saline NASAL DROPS 0.65% BTL BOTH NARES PRN (07:31)
[2024-08-07] MEDS: methylPREDNISolone SOD SUCC 40 mg/ml 1 ml VIAL IV SCH (13:29)
[2024-08-07] MEDS: Azithromycin 500 mg/250 ml NS 500 MG/250 ML BAG IVPB SCH (19:19)
[2024-08-08] MEDS: Saline NASAL SPRAY 0.65% BTL BOTH NARES PRN (05:27)
[2024-08-08] MEDS: Polyethylene Glycol 3350 17 GM PACKET PO PRN (20:57)
[2024-08-09 10:06] VITALS: BP 132/77
[2024-08-09] MEDS ORDERED: Albuterol/Ipratropium NEB.SOL (2.5/0.5 MG) 3 ML NEB.SOLN INH SCH (14:00)
== END 2024-08-09 11:12 | disposition home or self-care (01) ==
LOC: ED 13:27 → EDHOLD 13:27 → SUATTDRO 16:45 → MED 18:19
PROVIDERS: ADMIT Internal Medicine; ATTEND Hospitalist